=== PATIENT | female | born 1975 | race Caucasian/White ===

== ENCOUNTER 2024-11-05 10:25 | Inpatient (IN) | payer OTHER, SELFPAY ==
[2024-11-05] VITALS (27 sets, daily range): BP systolic 123–159; BP diastolic 72–98; PULSE 82–133; TEMP 36.6–36.8; O2SAT 95–118; BMI 22.3; BMI 23.0
--- NOTE | 2024-11-05 10:42 | ECG_ITS ---
[facility] Test Date: 2024-11-05 Pat Name: ZOE ORTIZ Department: Room: - Gender: Female Network Desktop Support Specialist: : [id number] Requested By: [id number] Order Number: [id number] Reading MD: AMADOR WEINER M.D. Measurements Intervals [place] Rate: 124 P: 51 TX: 132 QRS: 60 QRSD: 78 T: 13 QT: 318 QTc: 391 Interpretive Statements 1120 Sinus tachycardia 4068 Nonspecific Twave abnormality abnormal ECG No previous ECG available for comparison Electronically Signed On 11-05-2024 12:16:32 EDT by AMADOR WEINER M.D.
--- NOTE | 2024-11-05 10:43 | ED_ITS ---
HPI HPI - General Adult General Chief complaint: Alcohol Stated complaint: ALCOHOL WITHDRAWL Time Seen by Provider: 11/05/24 10:35 Source: patient Mode of arrival: walk-in History of Present Illness HPI narrative: 49-year-old female presents because she feels tremorous and states she is going through alcohol withdrawal. She has been on a binge recently and has been drinking alcohol heavily every day for the past 3 weeks. She was getting shaky during the night and had a beer at 7:00 this morning. She has been to alcohol treatment centers but never stays, she is accompanied by her mother. Symptoms started today. Related Data Home Medications ?Medication ?Instructions ?Recorded ?Confirmed clonazepam 1 mg tablet 1 mg PO BID PRN anxiety 11/05/24 11/05/24 clonidine HCl 0.1 mg tablet 0.1 mg PO TID 11/05/24 11/05/24 metoprolol succinate 25 mg 25 mg PO QAM 11/05/24 11/05/24 tablet,extended release 24 hr multivitamin (One Daily 1 tab PO DAILY 11/05/24 11/05/24 Multivitamin tablet) naltrexone 50 mg tablet 50 mg PO DAILY 11/05/24 11/05/24 quetiapine 25 mg tablet 25 mg PO Q6H 11/05/24 11/05/24 venlafaxine 75 mg capsule,extended 75 mg PO DAILY 11/05/24 11/05/24 release 24 hr Allergies Allergy/AdvReac Type Severity Reaction Status Date / Time No Known Drug Allergies Allergy Verified 11/05/24 10:37 Opioid HPI Opioid Management Most Recent Opioid Data: No Data to Display Review of Systems ROS Narrative A ten point review of systems is negative except as noted above. [facility] Medical History (Updated 11/05/24 @ 11:45 by Riley Vora MD) Depression ?F32.A - Depression, unspecified (ICD-10) Alcohol abuse ?F10.10 - Alcohol abuse, uncomplicated (ICD-10) Anxiety ?F41.9 - Anxiety disorder, unspecified (ICD-10) Exam Narrative Exam Narrative: Nurses note and vital signs reviewed and patient is not hypoxic. General: The patient appears well and in no apparent distress. Patient is resting comfortably on cart. Skin: Warm, dry, no pallor noted. There is no rash noted. Head: Normocephalic, atraumatic Eye: Normal conjunctiva, no drainage, no scleral icterus Ears, Nose, Mouth, and Throat: oral mucosa is somewhat dry. Nares patent. Cardiovascular: Regular Rate and Rhythm, tachycardic Respiratory: Patient is in no distress, no accessory muscle use, lungs are clear to auscultation, no wheezing, rales or rhonchi Back: non-tender GI: Soft and nontender Musculoskeletal: The patient has no evidence of calf tenderness, no pitting edema, symmetrical pulses noted bilaterally Neurological: A&O, normal speech; tremorous, upper and lower extremity strength intact Psychiatric: Cooperative Constitutional Vital Signs, click to edit/add: Last Vital Signs Temp 98.0 F 11/05/24 10:29 Pulse 133 H 11/05/24 10:29 Resp 26 H 11/05/24 10:29 BP 137/91 11/05/24 10:50 Pulse Ox 98 11/05/24 10:29 O2 Del Method Room Air 11/05/24 10:29 Course Vital Signs Vital signs: Vital Signs Temperature 98.0 F 11/05/24 10:29 Pulse Rate 133 H 11/05/24 10:29 Respiratory Rate 26 H 11/05/24 10:29 Blood Pressure 124/92 H 11/05/24 10:29 Pulse Oximetry 98 11/05/24 10:29 Oxygen Delivery Method Room Air 11/05/24 10:29 Temperature 98.0 F 11/05/24 10:29 Pulse Rate 133 H 11/05/24 10:29 Respiratory Rate 26 H 11/05/24 10:29 Blood Pressure 137/91 11/05/24 10:50 Pulse Oximetry 98 11/05/24 10:29 Oxygen Delivery Method Room Air 11/05/24 10:29 Medical Decision Making [facility] Narrative Medical decision making narrative: The patient presents with alcohol withdrawal. She is tachycardic and tremorous. She was given Ativan, 1 mg twice, as well as 2 L of IV fluid and continues to have symptoms. She will be admitted for observation. Findings are discussed with the patient. Differential Diagnosis Differential Diagnosis: Alcohol withdrawal, substance abuse, dehydration, anxiety Lab Data Lab results reviewed: Yes I reviewed the patient's lab results Labs: Lab Results 11/05/24 Range/Units 10:50 WBC 10.8 (4.0-11.0) 10^3/uL RBC 4.76 (4.20-5.40) 10^6/uL Hgb 15.6 (12.0-16.0) g/dL Hct 43.0 (36.0-48.0) % MCV 90.3 (81.0-99.0) fL MCH 32.8 (26.7-34.0) pg MCHC 36.3 H (29.9-35.2) g/dL RDW 12.3 (11.0-15.0) % Plt Count 188 (150-450) 10^3/uL MPV 9.2 L (9.5-13.5) fL Neut % (Auto) 71.7 (43.0-75.0) % Lymph % (Auto) 21.1 (20.5-60.0) % [place] % (Auto) 6.2 (1.7-12.0) % Eos % (Auto) 0.1 L (0.9-7.0) % Baso % (Auto) 0.6 (0.2-2.0) % Neut # (Auto) 7.8 H (1.4-6.5) 10^3/uL Lymph # (Auto) 2.3 (1.2-3.8) 10^3/uL [place] # (Auto) 0.7 (0.3-0.8) 10^3/uL Eos # (Auto) 0.0 (0.0-0.7) 10^3/uL Baso # (Auto) 0.1 (0.0-0.1) 10^3/uL Abs Immat Gran (auto) 0.03 (0.00-0.03) 10^3/uL Imm/Tot Granulo (auto) 0.3 (0.0-0.5) % Sodium 131 L (136-145) mmol/L Potassium 3.2 L (3.5-5.1) mmol/L Chloride 89 L (98-107) mmol/L Carbon Dioxide 24.7 (21.0-32.0) mmol/L Anion Gap 20.5 BUN 5.0 L (7.0-18.0) mg/dL Creatinine 0.80 (0.55-1.02) mg/dL Est GFR ( Amer) >60 (>=60 mL/min/1.73m^2) Est GFR (Non-Af Amer) >60 (>=60 mL/min/1.73m^2) BUN/Creatinine Ratio 6.3 Glucose 86 (74-106) mg/dL Calcium 9.2 (8.5-10.1) mg/dL Total Bilirubin 0.7 (0.2-1.0) mg/dL Direct Bilirubin 0.2 (0.0-0.2) mg/dL AST 73 H (15-37) U/L ALT 39 (14-59) U/L Alkaline Phosphatase 109 (46-116) U/L Total Protein 8.1 (6.4-8.2) g/dL Albumin 4.3 (3.4-5.0) g/dL Globulin 3.8 g/dL Albumin/Globulin Ratio 1.1 Amylase 58 (25-115) U/L Lipase 60.0 (16.0-77.0) U/L Ethanol Quant 126 mg/dL ECG Data Attestation: I personally reviewed and interpreted this ECG as follows: (EKG on my interpretation shows sinus tachycardia with a rate of 124) Discharge Plan Discharge Chief Complaint: Alcohol Clinical Impression: Alcohol withdrawal syndrome Patient Disposition: Admitted as Observation Time of Disposition Decision: 11:45 Condition: Fair Prescriptions / Home Meds: No Action clonazepam 1 mg tablet 1 mg PO BID PRN (Reason: anxiety) clonidine HCl 0.1 mg tablet 0.1 mg PO TID metoprolol succinate 25 mg tablet extended release 24 hr 25 mg PO QAM multivitamin [One Daily Multivitamin] Tablet 1 tab PO DAILY naltrexone 50 mg tablet 50 mg PO DAILY quetiapine 25 mg tablet 25 mg PO Q6H venlafaxine 75 mg capsule,extended release 24hr 75 mg PO DAILY Print Language: Chinese Referrals: Physician,Non-Staff, MD [Primary Care Provider] - 1 week
[2024-11-05 10:58] LABS: Basophils Absolute Auto 0.1 10^3/uL (0.0-0.1); Basophils Percent Auto 0.6 % (0.2-2.0); Eosinophils Percent Auto 0.1 % (0.9-7.0); Hemoglobin 15.6 g/dL (12.0-16.0); Immature Granulocytes Abs Auto 0.03 10^3/uL (0.00-0.03); Immature Granulocytes Pct Auto 0.3 % (0.0-0.5); Lymphocytes Absolute Auto 2.3 10^3/uL (1.2-3.8); Lymphocytes Percent Auto 21.1 % (20.5-60.0); Mean Corpuscular HGB Conc 36.3 g/dL (29.9-35.2); Mean Corpuscular Hemoglobin 32.8 pg (26.7-34.0); Mean Corpuscular Volume 90.3 fL (81.0-99.0); Mean Platelet Volume 9.2 fL (9.5-13.5); Monocytes Absolute Auto 0.7 10^3/uL (0.3-0.8); Monocytes Percent Auto 6.2 % (1.7-12.0); Neutrophils Absolute Auto 7.8 10^3/uL (1.4-6.5); Neutrophils Percent Auto 71.7 % (43.0-75.0); Platelet Count 188 10^3/uL (150-450); Red Blood Count 4.76 10^6/uL (4.20-5.40); Red Cell Distribution Width 12.3 % (11.0-15.0); White Blood Count 10.8 10^3/uL (4.0-11.0)
[2024-11-05] MEDS: LORAZEPAM 2 MG/ML VIAL 1 MG IV ×4 (10:58→19:44)
[2024-11-05] MEDS: ONDANSETRON PF 4 MG/2 ML VIAL IV (10:58)
[2024-11-05] MEDS: 0.9 % SODIUM CHLORIDE 1,000 ML 1000 ML IV ×2 (10:58→12:00)
[2024-11-05 11:14] LABS: Ethanol 126 mg/dL
[2024-11-05 11:20] LABS: Alanine Aminotransferase 39 U/L (14-59); Albumin Globulin Ratio 1.1; Albumin Level 4.3 g/dL (3.4-5.0); Alkaline Phosphatase 109 U/L (46-116); Anion Gap 20.5; Aspartate Amino Transferase 73 U/L (15-37); BUN Creatinine Ratio 6.3; Bilirubin Direct 0.2 mg/dL (0.0-0.2); Bilirubin Total 0.7 mg/dL (0.2-1.0); Calcium 9.2 mg/dL (8.5-10.1); Carbon Dioxide 24.7 mmol/L (21.0-32.0); Chloride 89 mmol/L (98-107); Estimated GFR (African America >60 (>=60 mL/min/1.73m^2); Estimated GFR (Non-African Ame >60 (>=60 mL/min/1.73m^2); Globulin 3.8 g/dL; Glucose 86 mg/dL (74-106); Potassium 3.2 mmol/L (3.5-5.1); Sodium 131 mmol/L (136-145); Total Protein 8.1 g/dL (6.4-8.2)
[2024-11-05 11:23] LABS: Amylase 58 U/L (25-115)
[2024-11-05 11:57] LABS: Bilirubin Urine NEGATIVE (NEGATIVE); Blood Urine MODERATE (NEGATIVE); Clarity Urine CLEAR (CLEAR); Color Urine LT. YELLOW (YELLOW); Glucose Urine UA NEGATIVE (NEGATIVE); Ketones Urine 40 mg/dL (NEGATIVE); Leukocyte Esterase Urine TRACE (NEGATIVE); Nitrite Urine NEGATIVE (NEGATIVE); Protein Urine NEGATIVE (NEG/TRACE); Specific Gravity Urine <=1.005 (1.005-1.025); Urobilinogen Urine 0.2 EU/dL (0.2-1.0)
[2024-11-05 12:07] LABS: RBC Urine 0-2 #/HPF (0-2); WBC Urine 0-2 #/HPF (NONE SEEN)
[2024-11-05 12:08] LABS: Bacteria Urine TRACE #/HPF (NONE SEEN)
[2024-11-05 12:09] LABS: Cast Seen? NONE SEEN #/LPF (NONE SEEN); Crystals Seen? None Seen #/HPF (None Seen); Mucus Urine NONE SEEN (NONE SEEN); Squamous Epithelial Cell Urine FEW #/LPF (NONE/RARE)
[2024-11-05 12:18] LABS: HCG Qualitative NEGATIVE (NEGATIVE); Internal Control Within Normal Limits
[2024-11-05 12:20] LABS: Amphetamine Screen Urine NEGATIVE (NEGATIVE); Barbiturates Screen Urine NEGATIVE (NEGATIVE); Benzodiazepines Screen Urine NEGATIVE (NEGATIVE); Buprenorphine Screen Urine NEGATIVE (NEGATIVE); Cannabinoid Screen Urine NEGATIVE (NEGATIVE); Cocaine Screen Urine NEGATIVE (NEGATIVE); Methadone Screen Urine NEGATIVE (NEGATIVE); Methamphetamines Screen Urine NEGATIVE (NEGATIVE); Opiate Screen Urine NEGATIVE (NEGATIVE); Oxycodone Screen Urine NEGATIVE (NEGATIVE); Phencyclidine Screen Urine NEGATIVE (NEGATIVE); Tricyclic Antidepressant Urine NEGATIVE (NEGATIVE)
--- NOTE | 2024-11-05 12:46 | P.HP_ITS ---
HPI H&P: HPI History of Present Illness Chief complaint: ALCOHOL WITHDRAWL Narrative: Pt with significant alcohol abuse history, she has quit many times, this time has been on a pretty severe admission, last 2 to 3 weeks, probably one of her worst episodes, presented to emergency room with withdrawal symptoms, sinus tachycardia, respiratory distress, uncontrolled hypertension, hyponatremia, hypokalemia I saw patient up in medical surgical floor very uncomfortable in bed going through active withdrawal symptoms despite medications Opioid HPI Opioid Management Most Recent Pain and Opioid Data: Last Pain Assessment 11/05/24 18:00 Last ORT Total Score 4 11/05/24 13:14 11/05/24 Last ORT Risk Category Moderate Risk 11/05/24 13:14 11/05/24 Ur Phencyclidine Scrn Negative (NEGATIVE) 11/05/24 11:46 10/15 10/07 Review of Systems ROS Status of ROS 10 or more systems reviewed and unremark able except as noted in history and below [facility] Medical History (Updated 11/05/24 @ 11:45 by Riley Vora MD) Depression ?F32.A - Depression, unspecified (ICD-10) Alcohol abuse ?F10.10 - Alcohol abuse, uncomplicated (ICD-10) Anxiety ?F41.9 - Anxiety disorder, unspecified (ICD-10) Social History Highest level of school completed/degree received: some college, no degree Little interest or pleasure in doing things: several days Feeling down, depressed, or hopeless: several days Meds Home Medications and Allergies Home Medications ?Medication ?Instructions ?Recorded ?Confirmed ?Type clonazepam 1 mg tablet 1 mg PO BID PRN anxiety 11/05/24 11/05/24 History clonidine HCl 0.1 mg tablet 0.1 mg PO TID 11/05/24 11/05/24 History metoprolol succinate 25 mg 25 mg PO QAM 11/05/24 11/05/24 History tablet,extended release 24 hr multivitamin (One Daily 1 tab PO DAILY 11/05/24 11/05/24 History Multivitamin tablet) naltrexone 50 mg tablet 50 mg PO DAILY 11/05/24 11/05/24 History quetiapine 25 mg tablet 25 mg PO Q6H 11/05/24 11/05/24 History venlafaxine 75 mg capsule,extended 75 mg PO DAILY 11/05/24 11/05/24 History release 24 hr Allergies Allergy/AdvReac Type Severity Reaction Status Date / Time No Known Drug Allergies Allergy Verified 11/05/24 10:37 Exam Constitutional Vital Signs, click to edit/add: Last Vital Signs Temp 98.0 F 11/05/24 10:29 Pulse 115 H 11/05/24 12:30 Resp 18 11/05/24 12:30 BP 146/98 H 11/05/24 11:31 Pulse Ox 98 11/05/24 12:30 O2 Del Method Room Air 11/05/24 10:29 Documenting provider has reviewed patient's vital signs: yes Common normals: apparent distress (Active withdrawal symptoms) Respiratory Common normals: normal respiratory effort Cardio Common normals: regular rhythm Rate: tachycardic GI Common normals: Normal to inspection, nondistended, normoactive bowel sounds present, soft to palpation and non-tender Neuro Common normals: oriented x3, CN's II-XII intact bilaterally and moves all extremities Results Labs Labs: Short CBC 11/05/24 Range/Units 10:50 WBC 10.8 (4.0-11.0) 10^3/uL Hgb 15.6 (12.0-16.0) g/dL Hct 43.0 (36.0-48.0) % Plt Count 188 (150-450) 10^3/uL BMP 11/05/24 10:50 Sodium 131 L Potassium 3.2 L Chloride 89 L Carbon Dioxide 24.7 BUN 5.0 L Creatinine 0.80 Glucose 86 Calcium 9.2 Liver Function 11/05/24 Range/Units 10:50 Total Bilirubin 0.7 (0.2-1.0) mg/dL Direct Bilirubin 0.2 (0.0-0.2) mg/dL AST 73 H (15-37) U/L ALT 39 (14-59) U/L Alkaline Phosphatase 109 (46-116) U/L Albumin 4.3 (3.4-5.0) g/dL Urine 11/05/24 Range/Units 11:46 Urine Color Lt. yellow (YELLOW) Urine Clarity Clear (CLEAR) Urine pH 6.0 (5.0-9.0) Ur Specific [place] <=1.005 A (1.005-1.025) Urine Protein Negative (NEG/TRACE) mg/dL Urine Glucose (UA) Negative (NEGATIVE) mg/dL Assessment and Plan Assessment and Plan (1) Alcohol withdrawal syndrome: (2) Depression: (3) Alcohol abuse: (4) Anxiety: Plan Admission findings: Tachycardia, respiratory distress, uncontrolled hypertension, hyponatremia, elevated liver function test secondary to alcohol abuse reviewed and currently going through alcohol withdrawal syndrome Alcohol abuse with active alcohol withdrawal syndrome-patient placed on phenobarbital [id number] and given Librium as needed, not effective currently and will get a bump up the Librium to scheduled every 4 can have every 2 as needed at the 50 mg dose and double the dose of the phenobarb and reevaluate in a.m. Hypokalemia-supplement Hyponatremia secondary to alcohol abuse-recheck in a.m. Elevated liver function test secondary to alcohol abuse-monitor resident daily Inpatient status: Patient with acute alcohol withdrawal syndrome, maintain current plan of observation, if not significant improved tomorrow which I believe is highly likely she will be changed to inpatient status
[2024-11-05 13:26] LABS: Erythrocyte Sedimentation Rate 23 mm/hr (<=20)
[2024-11-05 13:30] LABS: INR 1.02; Partial Thromboplastin Time 30.6 sec (22.3-36.2); Prothrombin Time 10.8 sec (9.0-11.6)
[2024-11-05] MEDS: 0.9 % SODIUM CHLORIDE 1,000 ML 125 ML IV ×2 (13:31→21:47)
[2024-11-05] MEDS: CLORDIAZEPOXIDE HCl 25 MG CAPSULE PO ×2 (13:31→19:43)
[2024-11-05] MEDS: NICOTINE 21 MG PATCH.TD24 TD (13:31)
[2024-11-05 13:42] LABS: Ammonia <10 umol/L (11-32)
[2024-11-05] MEDS: PANTOPRAZOLE SODIUM 40 MG VIAL IV (13:49)
[2024-11-05] MEDS: PHENobarbitaL 32.4 MG TABLET PO ×2 (13:49→18:17)
[2024-11-05] MEDS: THIAMINE MONONITRATE (VIT B1) 100 MG TABLET PO (13:50)
[2024-11-05] MEDS: CLONIDINE HCL 0.1 MG TABLET PO ×2 (13:50→21:44)
[2024-11-05] MEDS: QUETIAPINE FUMARATE 25 MG TABLET PO ×2 (13:50→19:44)
--- NOTE | 2024-11-05 14:39 | SWNOTE1 ---
SW met with pt to discuss alcohol abuse. Pt's mother was in room as well. Pt voiced she does not feel well at all, but is open to SW talking to her. Pt voiced that she goes through 2-3 months of being sober, then goes on a binge. She stated this was a very bad binge. SW did ask if it was 18 beers a day, she voiced at least 18 and again stated that was a bad binge. SW asked if she knew what triggered it? She was not sure. She did become teary eyed and stated that she now may lose her job and she just got it. SW provided comfort and advised pt that addiction is a life long saleh. SW asked if pt had resources and if she had been to inpt rehab? Pt voiced she has been to several inpt rehabs, but quickly responded that she is not going to inpt rehab. Pt stated she has a lutheran support group, she goes to counseling at [facility], and she also goes to [facility] counseling in [place] as well. Pt stated she is just not sure why she decided to drink this time. Pt's mother did not speak while SW in room. SW advised pt that SW will stop back in tomorrow to see if she would like any other resources.
[2024-11-05] MEDS: HYOSCYAMINE SULFATE 0.125 MG TAB.SUBL SL (16:00)
[2024-11-05] MEDS: CLORDIAZEPOXIDE HCl 25 MG CAPSULE 50 MG PO ×2 (18:17→21:44)
[2024-11-05] MEDS: HALOPERIDOL LACTATE 5 MG/ML VIAL IV (18:20)
--- NOTE | 2024-11-05 20:28 | NUTR.NU ---
Visited briefly w/pt. Provided general healthy diet handout, but pt is not feeling well at this time. Will plan follow-up visit for Sunday.
[2024-11-05] MEDS: POTASSIUM CHLORIDE 10 MEQ ER TABLET 20 MEQ PO (21:44)
[2024-11-05] MEDS: PHENobarbitaL 32.4 MG TABLET 64.8 MG PO (21:45)
[2024-11-05] MEDS: ROPINIROLE HCL 1 MG TABLET PO (21:45)
[2024-11-06] VITALS (28 sets, daily range): BP systolic 90–143; BP diastolic 52–90; PULSE 56–102; TEMP 36.1–36.8; O2SAT 87–100
[2024-11-06] MEDS: 0.9 % SODIUM CHLORIDE 1,000 ML 125 ML IV (05:38)
[2024-11-06] MEDS: CLORDIAZEPOXIDE HCl 25 MG CAPSULE 50 MG PO ×5 (05:39→22:59)
[2024-11-06] MEDS: PHENobarbitaL 32.4 MG TABLET 64.8 MG PO ×5 (05:39→22:56)
[2024-11-06] MEDS: CLONIDINE HCL 0.1 MG TABLET PO ×2 (05:44→14:28)
[2024-11-06 06:05] LABS: Basophils Percent Auto 0.6 % (0.2-2.0); Eosinophils Absolute Auto 0.1 10^3/uL (0.0-0.7); Hematocrit 36.7 % (36.0-48.0); Hemoglobin 12.8 g/dL (12.0-16.0); Immature Granulocytes Abs Auto 0.01 10^3/uL (0.00-0.03); Immature Granulocytes Pct Auto 0.2 % (0.0-0.5); Lymphocytes Absolute Auto 1.9 10^3/uL (1.2-3.8); Lymphocytes Percent Auto 38.8 % (20.5-60.0); Mean Corpuscular HGB Conc 34.9 g/dL (29.9-35.2); Mean Corpuscular Hemoglobin 33.2 pg (26.7-34.0); Mean Corpuscular Volume 95.1 fL (81.0-99.0); Mean Platelet Volume 9.7 fL (9.5-13.5); Monocytes Absolute Auto 0.4 10^3/uL (0.3-0.8); Monocytes Percent Auto 7.3 % (1.7-12.0); Neutrophils Absolute Auto 2.5 10^3/uL (1.4-6.5); Neutrophils Percent Auto 52.1 % (43.0-75.0); Platelet Count 132 10^3/uL (150-450); Red Blood Count 3.86 10^6/uL (4.20-5.40); Red Cell Distribution Width 12.7 % (11.0-15.0); White Blood Count 4.8 10^3/uL (4.0-11.0)
[2024-11-06 06:33] LABS: Alanine Aminotransferase 25 U/L (14-59); Albumin Globulin Ratio 1.1; Alkaline Phosphatase 75 U/L (46-116); Anion Gap 9.1; Aspartate Amino Transferase 40 U/L (15-37); BUN Creatinine Ratio 8.2; Bilirubin Total 0.8 mg/dL (0.2-1.0); Calcium 8.1 mg/dL (8.5-10.1); Carbon Dioxide 31.1 mmol/L (21.0-32.0); Chloride 103 mmol/L (98-107); Estimated GFR (African America >60 (>=60 mL/min/1.73m^2); Estimated GFR (Non-African Ame >60 (>=60 mL/min/1.73m^2); Globulin 2.8 g/dL; Glucose 85 mg/dL (74-106); Potassium 3.2 mmol/L (3.5-5.1); Sodium 140 mmol/L (136-145); Total Protein 5.8 g/dL (6.4-8.2)
--- NOTE | 2024-11-06 07:30 | CM.NOTE ---
Rounds made with Dr. Man, pt continues with visible tremors. Pt denies any nausea. No discharge today, will need to continue to adjust medications for withdraw. Pt will be changed to inpatient status.
[2024-11-06] MEDS: POTASSIUM CHLORIDE 10 MEQ ER TABLET 20 MEQ PO ×3 (07:43→22:56)
[2024-11-06] MEDS: QUETIAPINE FUMARATE 25 MG TABLET PO ×2 (07:44→14:27)
[2024-11-06] MEDS: HYOSCYAMINE SULFATE 0.125 MG TAB.SUBL SL ×3 (07:44→17:13)
[2024-11-06] MEDS: LORAZEPAM 2 MG/ML VIAL 1 MG IV (07:44)
--- NOTE | 2024-11-06 08:12 | P.PN_ITS ---
Progress Note: Subjective Subjective Interval history: Patient still going through withdrawal symptoms. Tremor, some abdominal pain, hard to focus Exam Constitutional Vital Signs, click to edit/add: Last Vital Signs Temp 98.3 F 11/06/24 08:00 Pulse 87 11/06/24 08:00 Resp 18 11/06/24 08:00 BP 143/90 H 11/06/24 08:00 Pulse Ox 98 11/06/24 08:00 O2 Del Method Room Air 11/06/24 07:00 Documenting provider has reviewed patient's vital signs: yes Common normals: apparent distress (Active withdrawal symptoms-improved but still persisting) Chest Common normals: inspection of chest normal Respiratory Common normals: normal respiratory effort, no retractions and clear to auscultation bilaterally Cardio Common normals: regular rhythm Rate: tachycardic GI Common normals: Normal to inspection, nondistended, normoactive bowel sounds present, soft to palpation and non-tender Neuro Common normals: oriented x3, CN's II-XII intact bilaterally and moves all extremities Progress Note: Objective Labs Labs: Short CBC 11/05/24 11/06/24 Range/Units 10:50 05:40 WBC 10.8 4.8 (4.0-11.0) 10^3/uL Hgb 15.6 12.8 (12.0-16.0) g/dL Hct 43.0 36.7 (36.0-48.0) % Plt Count 188 132 L (150-450) 10^3/uL BMP 11/05/24 11/06/24 10:50 05:47 Sodium 131 L 140 Potassium 3.2 L 3.2 L Chloride 89 L 103 Carbon Dioxide 24.7 31.1 BUN 5.0 L 5.0 L Creatinine 0.80 0.61 Glucose 86 85 Calcium 9.2 8.1 L Liver Function 11/05/24 11/06/24 Range/Units 10:50 05:47 Total Bilirubin 0.7 0.8 (0.2-1.0) mg/dL Direct Bilirubin 0.2 (0.0-0.2) mg/dL AST 73 H 40 H (15-37) U/L ALT 39 25 (14-59) U/L Alkaline Phosphatase 109 75 (46-116) U/L Albumin 4.3 3.0 L (3.4-5.0) g/dL Urine 11/05/24 Range/Units 11:46 Urine Color Lt. yellow (YELLOW) Urine Clarity Clear (CLEAR) Urine pH 6.0 (5.0-9.0) Ur Specific [place] <=1.005 A (1.005-1.025) Urine Protein Negative (NEG/TRACE) mg/dL Urine Glucose (UA) Negative (NEGATIVE) mg/dL Progress Note: A&P Assessment and Plan (1) Alcohol withdrawal syndrome: (2) Depression: (3) Alcohol abuse: (4) Anxiety: Plan Admission findings: Tachycardia, respiratory distress, uncontrolled hypertension, hyponatremia, elevated liver function test secondary to alcohol abuse reviewed and currently going through alcohol withdrawal syndrome Alcohol abuse with active alcohol withdrawal syndrome-vital signs have improved somewhat but patient still going through significant alcohol withdrawal symptoms, increase doses of Haldol and phenobarbital today, patient states in the past she has responded better to Klonopin than the Ativan, will keep the Ativan as needed IV and use oral Klonopin Hypokalemia-supplement Hyponatremia secondary to alcohol abuse-recheck in a.m. Elevated liver function test secondary to alcohol abuse-monitor daily Inpatient status: Patient still going through acute alcohol withdrawal syndrome, medications are increased today including Haldol and phenobarbital, already on a high dose of Librium, IV Ativan as needed, medically necessary treatment spanning 2 midnights, change patient to inpatient status ?
[2024-11-06] MEDS: MULTIVITAMIN TABLET 1 TAB PO (08:17)
[2024-11-06] MEDS: METOPROLOL SUCCINATE 25 MG TAB.ER.24H PO (08:17)
[2024-11-06] MEDS: VENLAFAXINE HCL ER 75 MG CAPSULE PO (08:17)
[2024-11-06] MEDS: PANTOPRAZOLE SODIUM 40 MG VIAL IV (08:17)
[2024-11-06] MEDS: THIAMINE MONONITRATE (VIT B1) 100 MG TABLET PO (08:17)
[2024-11-06] MEDS: HALOPERIDOL LACTATE 5 MG/ML VIAL IV ×2 (09:13→17:14)
[2024-11-06] MEDS: CLONAZEPAM 0.5 MG TABLET 1 MG PO (11:29)
--- NOTE | 2024-11-06 11:50 | SWNOTE1 ---
SW stopped in and spoke to pt. Pt's mother in room as well. Pt voiced she was still not feeling well. She voiced she just feels exhausted. Pt was able to eat and drink some. NAKUL asked pt if she was able to speak with her therapist and get an appointment scheduled? Pt stated she did speak with her therapist and she does have an appointment Sunday with one of her therapist who she voiced she really likes and is very helpful. She also stated she has an appointment with another one of her counselors on Sunday. NAKUL did again offer inpt rehab for alcohol abuse. She voiced she is not interested at this time. Pt's mother asked if that would be here at hospital. NAKUL let her know it would not be here, it would be elsewhere as we do not have those services here. NAKUL to check back on patient tomorrow.
[2024-11-06] MEDS: ROPINIROLE HCL 1 MG TABLET PO (22:57)
[2024-11-07] VITALS (7 sets, daily range): BP systolic 110–111; BP diastolic 61–70; PULSE 56–90; TEMP 36.3–36.4; O2SAT 90–100
[2024-11-07] MEDS: CLORDIAZEPOXIDE HCl 25 MG CAPSULE 50 MG PO (05:05)
[2024-11-07] MEDS: POTASSIUM CHLORIDE 10 MEQ ER TABLET 20 MEQ PO (05:06)
[2024-11-07] MEDS: PHENobarbitaL 32.4 MG TABLET 64.8 MG PO (05:06)
[2024-11-07 06:33] LABS: Basophils Percent Auto 0.7 % (0.2-2.0); Eosinophils Absolute Auto 0.1 10^3/uL (0.0-0.7); Eosinophils Percent Auto 2.2 % (0.9-7.0); Hematocrit 34.4 % (36.0-48.0); Hemoglobin 12.2 g/dL (12.0-16.0); Immature Granulocytes Abs Auto 0.01 10^3/uL (0.00-0.03); Immature Granulocytes Pct Auto 0.2 % (0.0-0.5); Lymphocytes Absolute Auto 2.3 10^3/uL (1.2-3.8); Lymphocytes Percent Auto 50.1 % (20.5-60.0); Mean Corpuscular HGB Conc 35.5 g/dL (29.9-35.2); Mean Corpuscular Hemoglobin 33.5 pg (26.7-34.0); Mean Corpuscular Volume 94.5 fL (81.0-99.0); Mean Platelet Volume 10.1 fL (9.5-13.5); Monocytes Absolute Auto 0.5 10^3/uL (0.3-0.8); Monocytes Percent Auto 9.9 % (1.7-12.0); Neutrophils Absolute Auto 1.7 10^3/uL (1.4-6.5); Neutrophils Percent Auto 36.9 % (43.0-75.0); Platelet Count 124 10^3/uL (150-450); Red Blood Count 3.64 10^6/uL (4.20-5.40); Red Cell Distribution Width 12.6 % (11.0-15.0); White Blood Count 4.5 10^3/uL (4.0-11.0)
[2024-11-07 06:43] LABS: Alanine Aminotransferase 31 U/L (14-59); Albumin Globulin Ratio 1.1; Albumin Level 3.2 g/dL (3.4-5.0); Alkaline Phosphatase 79 U/L (46-116); Anion Gap 12.5; Aspartate Amino Transferase 49 U/L (15-37); BUN Creatinine Ratio 4.4; Bilirubin Total 0.5 mg/dL (0.2-1.0); Calcium 8.6 mg/dL (8.5-10.1); Carbon Dioxide 26.1 mmol/L (21.0-32.0); Chloride 101 mmol/L (98-107); Estimated GFR (African America >60 (>=60 mL/min/1.73m^2); Estimated GFR (Non-African Ame >60 (>=60 mL/min/1.73m^2); Globulin 2.9 g/dL; Glucose 91 mg/dL (74-106); Potassium 3.6 mmol/L (3.5-5.1); Sodium 136 mmol/L (136-145); Total Protein 6.1 g/dL (6.4-8.2)
--- NOTE | 2024-11-07 07:07 | P.PN_ITS ---
Progress Note: Subjective Subjective Interval history: Patient still going through withdrawal symptoms. Tremor, some abdominal pain, hard to focus Exam Constitutional Vital Signs, click to edit/add: Last Vital Signs Temp 97.4 F L 11/07/24 03:00 Pulse 73 11/07/24 06:00 Resp 20 11/07/24 03:00 BP 111/61 11/07/24 05:06 Pulse Ox 96 11/07/24 03:00 O2 Del Method Room Air 11/07/24 03:00 Progress Note: Objective Labs Labs: Short CBC 11/07/24 Range/Units 05:44 WBC 4.5 (4.0-11.0) 10^3/uL Hgb 12.2 (12.0-16.0) g/dL Hct 34.4 L (36.0-48.0) % Plt Count 124 L (150-450) 10^3/uL BMP 11/07/24 05:44 Sodium 136 Potassium 3.6 Chloride 101 Carbon Dioxide 26.1 BUN 3.0 L Creatinine 0.68 Glucose 91 Calcium 8.6 Liver Function 11/07/24 Range/Units 05:44 Total Bilirubin 0.5 (0.2-1.0) mg/dL AST 49 H (15-37) U/L ALT 31 (14-59) U/L Alkaline Phosphatase 79 (46-116) U/L Albumin 3.2 L (3.4-5.0) g/dL Progress Note: A&P Assessment and Plan (1) Alcohol withdrawal syndrome: (2) Depression: (3) Alcohol abuse: (4) Anxiety: Plan Admission findings: Tachycardia, respiratory distress, uncontrolled hypertension, hyponatremia, elevated liver function test secondary to alcohol abuse reviewed and currently going through alcohol withdrawal syndrome Alcohol abuse with active alcohol withdrawal syndrome-vital signs have improved somewhat but patient still going through significant alcohol withdrawal symptoms, increase doses of Haldol and phenobarbital today, patient states in the past she has responded better to Klonopin than the Ativan, will keep the Ativan as needed IV and use oral Klonopin Hypokalemia-supplement Hyponatremia secondary to alcohol abuse-recheck in a.m. Elevated liver function test secondary to alcohol abuse-monitor daily Inpatient status: Patient still going through acute alcohol withdrawal syndrome, medications are increased today including Haldol and phenobarbital, already on a high dose of Librium, IV Ativan as needed, medically necessary treatment spanning 2 midnights, change patient to inpatient status ?
[2024-11-07] MEDS: HALOPERIDOL LACTATE 5 MG/ML VIAL IV (07:18)
[2024-11-07] MEDS: HYOSCYAMINE SULFATE 0.125 MG TAB.SUBL SL (07:19)
[2024-11-07] MEDS: QUETIAPINE FUMARATE 25 MG TABLET PO (07:19)
--- NOTE | 2024-11-07 07:42 | P.DS_ITS ---
DS: Providers Provider Date of admission: 11/05/24 13:04 Primary care physician: Non-Staff Physician, Consults: 11/05/24 Consult to Dietitian Routine Reason for consultation: etoh, not eating Has provider been notified: No Consult to Pediatric Care Coordinator Routine Reason for consult:: Other Other reason:: substance aabuse 11/05/24 13:11 Consult to Pharmacy Routine Consulting Provider: Reason for consultation: Please [place] me when Med Rec is Updated Has provider been notified: No DS: Diagnosis Discharge Diagnosis (1) Alcohol withdrawal syndrome: (2) Depression: (3) Alcohol abuse: (4) Anxiety: Plan Admission findings: Tachycardia, respiratory distress, uncontrolled hypertens ion, hyponatremia, elevated liver function test secondary to alcohol abuse reviewed and currently going through alcohol withdrawal syndrome Alcohol abuse with active alcohol withdrawal syndrome-vital signs have improved somewhat but patient still going through significant alcohol withdrawal symptoms, increase doses of Haldol and phenobarbital today, patient states in the past she has responded better to Klonopin than the Ativan, will keep the Ativan as needed IV and use oral Klonopin Hypokalemia-supplement Hyponatremia secondary to alcohol abuse-recheck in a.m. Elevated liver function test secondary to alcohol abuse-monitor daily Inpatient status: Patient still going through acute alcohol withdrawal syndrome, medications are increased today including Haldol and phenobarbital, already on a high dose of Librium, IV Ativan as needed, medically necessary treatment spanning 2 midnights, change patient to inpatient status ? DS: Summary Hospital Course Hospital Course: Patient presented with acute alcohol withdrawal syndrome, treated aggressively with Ativan, Librium, phenobarbital, Haldol. Not much improvement over the first day and all the medications were adjusted except the Ativan, that was switched to Klonopin, patient fell a bit better with that, today she feels like she is stable for discharge to home, to me still x-ray she is having some active alcohol withdrawal symptoms but patient adamant that she wants to leave, she is not a danger to herself, so at this point we will discharge patient to home in improving condition. Medications see list. Follow-up with PCP and counseling within the next week. Time Spent with Patient Time attestation: Total time spent providing and/or coordinating discharge services: Exam Constitutional Vital Signs, click to edit/add: Last Vital Signs Temp 97.4 F L 11/07/24 03:00 Pulse 73 11/07/24 06:00 Resp 20 11/07/24 03:00 BP 111/61 11/07/24 05:06 Pulse Ox 96 11/07/24 03:00 O2 Del Method Room Air 11/07/24 03:00 Documenting provider has reviewed patient's vital signs: yes Common normals: apparent distress (Seems mildly anxious) Chest Common normals: inspection of chest normal Respiratory Common normals: normal respiratory effort and no retractions Cardio Common normals: regular rate and regular rhythm GI Common normals: Normal to inspection, nondistended, normoactive bowel sounds present DS: Data Data Completed and Pending Labs on day of discharge: Labs from last 24 hours 11/07/24 05:44 WBC 4.5 RBC 3.64 L Hgb 12.2 Hct 34.4 L MCV 94.5 MCH 33.5 MCHC 35.5 H RDW 12.6 Plt Count 124 L MPV 10.1 Neut % (Auto) 36.9 L Lymph % (Auto) 50.1 [place] % (Auto) 9.9 Eos % (Auto) 2.2 Baso % (Auto) 0.7 Neut # (Auto) 1.7 Lymph # (Auto) 2.3 [place] # (Auto) 0.5 Eos # (Auto) 0.1 Baso # (Auto) 0.0 Abs Immat Gran (auto) 0.01 Imm/Tot Granulo (auto) 0.2 Sodium 136 Potassium 3.6 Chloride 101 Carbon Dioxide 26.1 Anion Gap 12.5 BUN 3.0 L Creatinine 0.68 Est GFR ( Amer) >60 Est GFR (Non-Af Amer) >60 BUN/Creatinine Ratio 4.4 Glucose 91 Calcium 8.6 Total Bilirubin 0.5 AST 49 H ALT 31 Alkaline Phosphatase 79 Total Protein 6.1 L Albumin 3.2 L Globulin 2.9 Albumin/Globulin Ratio 1.1 Discharge Plan Discharge Disposition: Home, Self-Care Condition: Fair Discharge Medications: Continued clonazepam 1 mg tablet 1 mg PO BID PRN (Reason: anxiety) metoprolol succinate 25 mg tablet extended release 24 hr 25 mg PO QAM multivitamin [One Daily Multivitamin] Tablet 1 tab PO DAILY quetiapine 25 mg tablet 25 mg PO Q6H venlafaxine 75 mg capsule,extended release 24hr 75 mg PO DAILY Print Language: Lao Patient Instructions: Alcohol Withdrawal (DC) Forms: Portal Instructions Follow Up Appointments: Keep appointment with Dr Reed Cardona December 30@ 0820 keep appointment with Jcarlos Avitia (therapist) November 12 @ 0900
[2024-11-07] MEDS: MULTIVITAMIN TABLET 1 TAB PO (08:01)
[2024-11-07] MEDS: THIAMINE MONONITRATE (VIT B1) 100 MG TABLET PO (08:01)
[2024-11-07] MEDS: VENLAFAXINE HCL ER 75 MG CAPSULE PO (08:01)
[2024-11-07] MEDS: PANTOPRAZOLE SODIUM 40 MG VIAL IV (08:01)
--- NOTE | 2024-11-10 12:44 | CM.DCFOLLOWU ---
1st attempt 11/10/24, no answer
--- NOTE | 2024-11-11 13:47 | CM.DCFOLLOWU ---
Person spoke with:patient How are you feeling? still not feeling too great, but each day a little better. Went to doctor in [place] and was prescribed medication How is your pain? nausea Did you understand your discharge instructions?yes Do you have any questions about your discharge instructions?no Were you given any prescriptions at discharge?no Were you able to get your prescriptions filled?N/A Do you understand how to take your medications as ordered?yes Do you have any questions about your follow up appointment and do you plan to keep your follow up appointment? no questions, reviewed follow ups Is there anything else that you would like to discuss?no Questions/Comments/Concerns/Other:none
== END 2024-11-07 09:30 | disposition home or self-care (01) | DRG 775 ==
LOC: ER 11:45 → MS 11-07 07:44
PROVIDERS: Admitting Provider Family Medicine; Emergency Provider Emergency Medicine; Visit Provider Family Medicine
DX: F10.139 Alcohol abuse with withdrawal, unspecified (principal); F32.A Depression, unspecified; F41.9 Anxiety disorder, unspecified; R00.0 Tachycardia, unspecified; R06.03 Acute respiratory distress; I10 Essential (primary) hypertension; E87.1 Hypo-osmolality and hyponatremia; R79.89 Other specified abnormal findings of blood chemistry; E87.6 Hypokalemia; R25.1 Tremor, unspecified; Y90.6 Blood alcohol level of 120-199 mg/100 ml
CPT/HCPCS: 36415; 80048; 80053; 80076; 80307; 80320; 81001; 82140; 82150; 83690; 83735; 84703; 85025; 85610; 85652; 85730; 93005; 94667; 94668; 94761; 96374; 96375; 96376; 99285; 99406; G0378; J1630; J2060; J2405